=== PATIENT | female | born 2000 | race Caucasian/White ===

== ENCOUNTER 2022-10-05 11:26 | Emergency (ER) | payer OTHER, SELFPAY ==
[2022-10-05] VITALS (18 sets, daily range): BP systolic 84–105; BP diastolic 40–72; PULSE 101–134; RESP 16; TEMP 37.1–37.7; O2SAT 97–100
--- NOTE | 2022-10-05 12:03 | ED.GENADULT ---
HPI - General Adult General Time Seen by Provider: 12:03 Date Seen: 10/05/22 Chief complaint: Nausea/Vomiting Stated complaint: Vomiting Time Seen by Provider: 10/05/22 11:53 Source: patient and RN notes reviewed Mode of arrival: ambulatory Limitations: no limitations History of Present Illness HPI narrative: Patient is a 21-year-old female coming in with acute nausea vomiting and diarrhea that started at 2:00 a.m.. She woke with nausea vomiting at 2:00 a.m.. She has proceeded to nonbloody diarrhea. She feels achy everywhere. She has had a bit of a cough the last 2 days. 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 She did have COVID in August. She tried some oral Zofran at home and vomited that back up. She has had some abdominal pain with this but nothing she would describe as severe. She has underlying celiac disease but is not aware of any foods that may have caused this. Patient states there is no chance for . Related Data Home Medications Medication Instructions Recorded Confirmed loratadine 10 mg tablet (Claritin) 10 mg PO DAILY 10/05/22 10/05/22 venlafaxine 150 mg 150 mg PO DAILY 10/05/22 10/05/22 capsule,extended release 24 hr Previous Rx's Medication Instructions Recorded ondansetron 4 mg disintegrating 4 mg PO Q6H PRN nausea and 10/05/22 tablet vomiting #20 tabs Allergies Allergy/AdvReac Type Severity Reaction Status Date / Time No Known Drug Allergies Allergy Verified 10/05/22 11:54 Review of Systems Status of ROS: Reports: 10 or more systems reviewed and unremarkable except as noted in History and below PFSH PFSH Social History Smoking Status: Never smoker How often do you have a drink containing alcohol: never How often do you have six or more drinks on one occasion: Never AUDIT-C Alcohol total score: 0 Non-prescribed substance use: denies use Exam Const: Vital Signs, click to edit/add: Vital Signs - 24 hr 10/05/22 11:48 10/05/22 12:14 10/05/22 12:15 Temperature 99.9 F H Pulse Rate 104 H Pulse Rate [Bilate ral Pulse Oximeter ] 134 H Respiratory Rate 16 Blood Pressure Blood Pressure [Ri ght Upper Arm] 98/59 L Pulse Oximetry 97 99 99 Oxygen Delivery Me thod Room Air 10/05/22 12:32 10/05/22 12:30 10/05/22 12:31 Temperature 98.8 F Pulse Rate 111 H 105 H Pulse Rate [Bilate ral Pulse Oximeter ] Respiratory Rate Blood Pressure 105/72 Blood Pressure [Ri ght Upper Arm] Pulse Oximetry 100 100 Oxygen Delivery Me thod 10/05/22 12:32 10/05/22 13:00 10/05/22 13:01 Temperature Pulse Rate 114 H 101 H 105 H Pulse Rate [Bilate ral Pulse Oximeter ] Respiratory Rate Blood Pressure 103/67 Blood Pressure [Ri ght Upper Arm] Pulse Oximetry 100 100 100 Oxygen Delivery Me thod 10/05/22 13:02 10/05/22 13:30 10/05/22 13:31 Temperature Pulse Rate 102 H 111 H 113 H Pulse Rate [Bilate ral Pulse Oximeter ] Respiratory Rate Blood Pressure 94/63 Blood Pressure [Ri ght Upper Arm] Pulse Oximetry 100 100 99 Oxygen Delivery Me thod 10/05/22 13:32 10/05/22 14:00 10/05/22 14:01 Temperature Pulse Rate 112 H 107 H 106 H Pulse Rate [Bilate ral Pulse Oximeter ] Respiratory Rate Blood Pressure 93/50 L Blood Pressure [Ri ght Upper Arm] Pulse Oximetry 99 98 98 Oxygen Delivery Me thod 10/05/22 14:30 10/05/22 14:31 10/05/22 14:35 Temperature Pulse Rate 107 H 109 H 112 H Pulse Rate [Bilate ral Pulse Oximeter ] Respiratory Rate Blood Pressure 84/46 L 89/40 L Blood Pressure [Ri ght Upper Arm] Pulse Oximetry 98 98 97 Oxygen Delivery Me thod Documenting provider has reviewed patient's vital signs: yes Common normals: no apparent distress, oriented x3, no limitations, healthy appearing, alert and well nourished General appearance: cooperative, comfortable, well kempt and well developed Nutritional appearance: thin Other: Mildly tearful but no apparent distress. HENMT: Common normals: normocephalic, head/scalp atraumatic, hearing grossly normal bilaterally and external ears normal Head and scalp: normocephalic and atraumatic External ear: external ears normal Eye: Common normals: PERRL, EOMs intact bilaterally, conjunctivae normal and no scleral icterus Conjunctiva: conjunctiva(e) normal Pupil: PERRL Neck & C-Spine: Common normals: full ROM, no lymphadenopathy, supple, no meningeal signs, no JVD and thyroid normal Thyroid: thyroid normal Resp: Common normals: normal respiratory effort, no retractions, no use of accessory muscles and clear to auscultation bilaterally Effort & inspection: able to speak in complete sentences Auscultation: clear to auscultation bilaterally Cardio: Common normals: no JVD, regular rhythm, S1 normal heart sound, S2 normal heart sound, no gallops, no clicks, no murmurs and no rub Rate: tachycardic Rhythm: regular rhythm Heart sounds: S1 normal and S2 normal GI: Common normals: Normal to inspection, nondistended, normoactive bowel sounds present, soft to palpation, non-tender, no hepatosplenomegaly and no masses Palpation: soft and no hepatosplenomegaly Extremity: Common normals: normal to inspection, full ROM, normal capillary refill, no calf tenderness and no pedal edema Neuro: Common normals: oriented x3 Sensorium/orientation: alert Meningeal signs: no meningeal signs Psych: Appearance: well kempt Course Course Hospital Course: Patient is tachycardic, obviously showing signs of dehydration. IV will be started, monitored on pulse oximetry. Will give her 4 mg IV Zofran and a L of IV fluids. I will get complement of labs and we will do the triple viral swab. Abdomen is quite soft. Do not feel that this is represent being a acute surgical abdomen at this time but we will reconsider if there is anything concerning with her labs or for clinical exam changes. This is likely a viral gastroenteritis. Reevaluation(s) Reevaluation #1: Patient has completed 1 L of fluids, is sipping on some water and is keeping it down. Reviewed her normal labs, no COVID influenza or RSV. This likely represents a viral gastroenteritis. We are going to initiate 1 more L of IV fluids as we have the IV in, see if she can tolerate some oral Tylenol. Her heart rate has come down. She has no further Zofran at home, will send a prescription in for her. Time: 13:25 Vital Signs Vital signs: Initial Vital Signs Temperature 99.9 F H 10/05/22 11:48 Temperature Source Temporal Artery Scan 10/05/22 11:48 Pulse Rate 134 H 10/05/22 11:48 Respiratory Rate 16 10/05/22 11:48 Blood Pressure 98/59 L 10/05/22 11:48 Blood Pressure Mean 72 10/05/22 11:48 Blood Pressure Position Sitting 10/05/22 11:48 Pulse Oximetry 97 10/05/22 11:48 Oxygen Delivery Method 10/05/22 11:48 Vital Signs Temperature 99.9 F H 10/05/22 11:48 Pulse Rate 134 H 10/05/22 11:48 Respiratory Rate 16 10/05/22 11:48 Blood Pressure 98/59 L 10/05/22 11:48 Pulse Oximetry 97 10/05/22 11:48 Oxygen Delivery Method 10/05/22 11:48 Temperature 98.8 F 10/05/22 12:32 Pulse Rate 112 H 10/05/22 14:35 Respiratory Rate 16 10/05/22 11:48 Blood Pressure 89/40 L 10/05/22 14:35 Pulse Oximetry 97 10/05/22 14:35 Oxygen Delivery Method 10/05/22 11:48 Medical Decision Making Lab Data Lab results reviewed: Yes I reviewed the patient's lab results Labs: Lab Results 10/05/22 10/05/22 10/05/22 Range/Units 12:05 12:05 12:05 WBC 7.97 (4.50-11.00) K/uL RBC 5.06 (4.00-5.20) m/uL Hgb 14.7 (12.0-16.0) gm/dL Hct 44.7 (33.0-51.0) % MCV 88 (80-100) fL MCH 29 (26-34) pg MCHC 33 (32-36) gm/dL RDW Coeff of Rissa 12.7 (11.5-15.5) % Plt Count 176 (140-440) K/uL Neut % (Auto) 94.1 H (42.0-72.0) % Lymph % (Auto) 2.1 L (20-44) % [place] % (Auto) 3.6 (0.0-11.0) % Eos % (Auto) 0.0 (0.0-7.0) % Baso % (Auto) 0.1 (0.0-3.0) % Neut # (Auto) 7.50 H (1.7-7.0) K/uL Lymph # (Auto) 0.20 L (0.90-2.90) K/uL [place] # (Auto) 0.30 (0.00-0.90) K/UL Eos # (Auto) 0.00 (0.00-0.50) K/uL Baso # (Auto) 0.01 (0.00-0.30) K/uL Sodium 139 (135-149) mmol/L Potassium 3.8 (3.6-5.1) mmol/L Chloride 105 (96-114) mmol/L Carbon Dioxide 24 (20-32) mmol/L BUN 13 (5-24) mg/dL Creatinine 0.6 (0.5-1.5) mg/dL Estimated Creat Clear 128.52 Estimated GFR 132 ml/min Glucose 121 H (60-115) mg/dL Lactate 1.4 (0.5-1.9) mmol/L Calcium 8.5 (8.4-10.6) mg/dL Total Bilirubin 0.8 (0.1-1.5) mg/dL AST 18 (12-35) U/L ALT 17 (4-35) U/L Alkaline Phosphatase 67 (40-150) U/L C-Reactive Protein 0.7 (0.5-1.0) mg/dL Total Protein 7.2 (6.0-8.3) g/dL Albumin 4.3 (3.3-5.0) g/dL Lipase 55 (23-300) U/L SARS-CoV-2 (PCR) (Negative) Influenza Type A (PCR) (Negative) Influenza Type B (PCR) (Negative) RSV (PCR) (Negative) SARS-CoV-2 Ag (Rapid) (Negative) 10/05/22 10/05/22 Range/Units 12:22 12:22 WBC (4.50-11.00) K/uL RBC (4.00-5.20) m/uL Hgb (12.0-16.0) gm/dL Hct (33.0-51.0) % MCV (80-100) fL MCH (26-34) pg MCHC (32-36) gm/dL RDW Coeff of Rissa (11.5-15.5) % Plt Count (140-440) K/uL Neut % (Auto) (42.0-72.0) % Lymph % (Auto) (20-44) % [place] % (Auto) (0.0-11.0) % Eos % (Auto) (0.0-7.0) % Baso % (Auto) (0.0-3.0) % Neut # (Auto) (1.7-7.0) K/uL Lymph # (Auto) (0.90-2.90) K/uL [place] # (Auto) (0.00-0.90) K/UL Eos # (Auto) (0.00-0.50) K/uL Baso # (Auto) (0.00-0.30) K/uL Sodium (135-149) mmol/L Potassium (3.6-5.1) mmol/L Chloride (96-114) mmol/L Carbon Dioxide (20-32) mmol/L BUN (5-24) mg/dL Creatinine (0.5-1.5) mg/dL Estimated Creat Clear Estimated GFR ml/min Glucose (60-115) mg/dL Lactate (0.5-1.9) mmol/L Calcium (8.4-10.6) mg/dL Total Bilirubin (0.1-1.5) mg/dL AST (12-35) U/L ALT (4-35) U/L Alkaline Phosphatase (40-150) U/L C-Reactive Protein (0.5-1.0) mg/dL Total Protein (6.0-8.3) g/dL Albumin (3.3-5.0) g/dL Lipase (23-300) U/L SARS-CoV-2 (PCR) Negative SARS-CoV-2 (Negative) Influenza Type A (PCR) Negative PCR FLU A (Negative) Influenza Type B (PCR) Negative PCR FLU B (Negative) RSV (PCR) Negative PCR RSV (Negative) SARS-CoV-2 Ag (Rapid) negative (Negative) Critical Care Time Critical Care Time Critical Care Time: No Discharge Plan Discharge Clinical Impression: Gastroenteritis Patient Disposition: Home, Self-Care Condition: Stable Instructions: Gastroenteritis (ED) Additional Instructions: Use Zofran as needed to try to mireille nausea and vomiting. Drink small sips of clear liquids every 5-10 minutes while awake to help avoid dehydration and overloading your stomach. If you are not improving in the next 24-48 hours, feel you are worsening at any point, please seek re-evaluation. As you feel better, can advance your diet back to normal as tolerated. Activity Level: Activity as Tolerated Prescriptions: New ondansetron 4 mg tablet,disintegrating 4 mg PO Q6H PRN (Reason: nausea and vomiting) Qty: 20 0RF No Action venlafaxine 150 mg capsule,extended release 24hr 150 mg PO DAILY loratadine [Claritin] 10 mg tablet 10 mg PO DAILY Follow Up/Referrals: Macie Ewing MD [Primary Care Provider] - Stand Alone Forms: [employer] Info Instructions
--- NOTE | 2022-10-05 12:14 | CRLHL7_ITS ---
For Patients: As a result of the Century Cures Act, medical imaging exams and procedure reports are released immediately into your electronic medical record. You may view this report before your referring provider. If you have questions, please contact your health care provider. Indication: Cough Technique: Chest 1 view Comparison: None Findings/Impression: Cardiovascular and mediastinum: Heart size and vasculature are normal in caliber and appearance. Lungs and pleural space: Lungs are clear. No sign of infiltrate or mass. No sign of pleural effusion. No pneumothorax. Bones and soft tissues: No acute findings. Dictated by Itz Carter MD @ 10/05/2022 2:00:22 PM (Electronically Signed)
[2022-10-05] MEDS: 0.9 % SODIUM CHLORIDE 1000 ml 1,000 ML IV ×2 (12:15→13:31)
[2022-10-05 12:22] LABS: Lactate* 1.4 mmol/L (0.5-1.9)
[2022-10-05 12:24] LABS: Basophils Absolute Auto 0.01 K/uL (0.00-0.30); Basophils Percent Auto 0.1 % (0.0-3.0); Hematocrit 44.7 % (33.0-51.0); Hemoglobin* 14.7 gm/dL (12.0-16.0); Immature Granulocytes Abs Auto 0.01 K/uL (0.00-0.30); Immature Granulocytes Pct Auto 0.1 %; Lymphocytes Percent Auto 2.1 % (20-44); Mean Corpuscular HGB Conc 33 gm/dL (32-36); Mean Corpuscular Hemoglobin 29 pg (26-34); Mean Corpuscular Volume 88 fL (80-100); Monocytes Percent Auto 3.6 % (0.0-11.0); Neutrophils Percent Auto 94.1 % (42.0-72.0); Platelet Count* 176 K/uL (140-440); RDW Coefficient of Variation % 12.7 % (11.5-15.5); Red Blood Count 5.06 m/uL (4.00-5.20); White Blood Count* 7.97 K/uL (4.50-11.00)
[2022-10-05 12:26] LABS: Slide Review Reflex No
[2022-10-05] MEDS: ONDANSETRON 2 MG/ML inj 4 MG IVP (12:27)
[2022-10-05 12:32] LABS: Albumin* 4.3 g/dL (3.3-5.0); Chloride* 105 mmol/L (96-114)
[2022-10-05 12:33] LABS: Potassium* 3.8 mmol/L (3.6-5.1); Sodium* 139 mmol/L (135-149)
[2022-10-05 12:35] LABS: Alkaline Phosphatase* 67 U/L (40-150); Aspartate Amino Transferase* 18 U/L (12-35); Bilirubin Total* 0.8 mg/dL (0.1-1.5); Carbon Dioxide* 24 mmol/L (20-32); Creatinine* 0.6 mg/dL (0.5-1.5); Est. Creatinine Clearance* 128.52; Estimated Glomerular Filt Rate 132 ml/min; Total Protein* 7.2 g/dL (6.0-8.3)
[2022-10-05 12:36] LABS: Alanine Aminotransferase* 17 U/L (4-35); Blood Urea Nitrogen* 13 mg/dL (5-24); Calcium* 8.5 mg/dL (8.4-10.6); Glucose* 121 mg/dL (60-115); Lipase* 55 U/L (23-300)
[2022-10-05 12:38] LABS: C Reactive Protein* 0.7 mg/dL (0.5-1.0)
[2022-10-05 12:41] LABS: SARS Antigen* negative (Negative)
[2022-10-05 13:07] LABS: PCR FLU A Negative PCR FLU A (Negative); PCR FLU B Negative PCR FLU B (Negative); PCR RSV Negative PCR RSV (Negative)
[2022-10-05 13:09] LABS: SARS PCR* Negative SARS-CoV-2 (Negative)
[2022-10-05] MEDS: ACETAMINOPHEN 500 MG TABLET 1000 MG PO (13:31)
--- NOTE | 2022-10-05 14:40 | ED.NURSE ---
updated about pt's lower trending BPs.
== END 2022-10-05 15:00 | disposition home or self-care (01) ==
PROVIDERS: Emergency Provider Family Medicine; PCP Family Medicine
DX: K52.9 Noninfective gastroenteritis and colitis, unspecified (principal)
CPT/HCPCS: 36415; 71045; 80053; 83605; 83690; 85025; 86140; 87426; 87502; 87634; 87635; 94761; 96361; 96374; 99284; A9270; J2405; J7030